=== PATIENT | female | born 1995 | race Caucasian/White ===

== ENCOUNTER 2020-08-23 10:40 | Emergency (ER) | payer MEDICAID ==
[~2020-08-23] VITALS: Ht 165.1 cm; Wt 52.7 kg
[2020-08-23 10:54] VITALS: BP 123/86
[2020-08-23] MEDS ORDERED: DOXY100C43 PO (12:34)
== END 2020-08-23 13:00 | disposition home or self-care (01) ==
LOC: ER 10:40
DX: L03.116 Cellulitis of left lower limb (principal); Z88.1 Allergy status to other antibiotic agents; Z88.0 Allergy status to penicillin; Z79.2 Long term (current) use of antibiotics
CPT/HCPCS: 99283